=== PATIENT | female | born 1945 | race Caucasian/White ===

== ENCOUNTER 2019-03-25 03:01 | Inpatient (IN) | payer MEDICARE, OTHER ==
[2019-03-25] MEDS: morphine 4 MG/ML VIAL IM (03:29)
[2019-03-25] MEDS: ONDANSETRON (ODT) 4 MG TAB ODT (03:30)
[2019-03-25 05:25] LABS: ADD MAN DIFF? NO
[2019-03-25] MEDS: morphine 4 MG/ML VIAL IV ×2 (05:31→09:00)
[2019-03-25 05:32] LABS: WHITE BLOOD COUNT 12.7 10^3/ul (4.8-10.8)
[2019-03-25 05:32] LABS: BASOPHILS % 0.7 % (0.0-2.0); EOSINOPHILS % 2.1 % (0.0-7.0); HEMATOCRIT 36.1 % (37.0-47.0); HEMOGLOBIN 11.3 g/dl (12.0-16.0); LYMPHOCYTES # 0.8 10^3/ul (0.8-2.9); LYMPHOCYTES % 6.3 % (15.0-51.0); MEAN CORPUSCULAR HEMOGLOBIN 28.7 pg (29.0-33.0); MEAN CORPUSCULAR HGB CONC 31.3 g/dl (32.0-37.0); MEAN CORPUSCULAR VOLUME 91.6 fl (82.0-101.0); MEAN PLATELET VOLUME 10.3 fl (7.4-10.4); MONOCYTES % 4.7 % (0.0-11.0); NEUTROPHIL # 10.8 10^3/ul (1.6-7.5); NEUTROPHILS % 85.6 % (39.0-77.0); PLATELET COUNT 303 10^3/UL (140-415); RED BLOOD COUNT 3.94 10^6/ul (4.20-5.40)
[2019-03-25] MEDS: ONDANSETRON 4 MG INJ IV (05:32)
[2019-03-25 05:33] LABS: BASOPHIL # 0.1 10^3/ul (0.0-0.1); EOSINOPHILS # 0.3 10^3/ul (0.0-0.5); MONOCYTE # 0.6 10^3/ul (0.3-0.9)
[2019-03-25 05:51] LABS: INR 0.87; PROTIME 11.9 Sec (11.9-14.9); PT RATIO 0.9
[2019-03-25 05:52] LABS: PARTIAL THROMBOPLASTIN TIME 29.1 Sec (23.0-35.0)
[2019-03-25 05:58] LABS: ALANINE AMINOTRANSFERASE 11 IU/L (13-69); ALBUMIN 3.7 g/dl (3.3-4.9); ALBUMIN/GLOBULIN RATIO 1.15; ALKALINE PHOSPHATASE 103 IU/L (42-121); ANION GAP 7 (5-13); ASPARTATE AMINO TRANSFERASE 17 IU/L (15-46); BILIRUBIN,INDIRECT 0.1 mg/dl (0-1.1); BILIRUBIN,TOTAL 0.1 mg/dl (0.2-1.3); BLOOD UREA NITROGEN 20 mg/dl (7-20); CALCIUM 9.2 mg/dl (8.4-10.2); CARBON DIOXIDE 29 mmol/L (21-31); CHLORIDE 104 mmol/L (97-110); CREATININE 0.74 mg/dl (0.44-1.00); GLUCOSE 127 mg/dl (70-220); POTASSIUM 4.3 mmol/L (3.5-5.1); SODIUM 140 mmol/L (135-144); TOTAL PROTEIN 6.9 g/dl (6.1-8.1)
[2019-03-25] MEDS ORDERED: ACETAMINOPHEN 325 MG TAB PO (09:00)
[2019-03-25] MEDS ORDERED: HYDROCODONE/APAP (5/325) TAB PO (09:00)
[2019-03-25] MEDS: DEXTROSE 5%-0.45% NACL 1,000 ML IV ×2 (09:00→22:44)
[2019-03-25] MEDS: HYDROmorphONE 1 MG/ML SYG IV ×3 (11:33→19:24)
[2019-03-25] MEDS: HYDROCODONE/APAP (5/325) TAB PO ×2 (16:32→22:39)
[2019-03-25] MEDS: ZOLPIDEM 5 MG TAB PO (21:47)
[2019-03-26] MEDS: ALBUTEROL 0.083% (NEB) 2.5 MG/3 ML AMP HHN ×2 (02:38→16:35)
[2019-03-26] MEDS: ONDANSETRON 4 MG INJ IV ×3 (04:56→21:34)
[2019-03-26] MEDS: HYDROCODONE/APAP (5/325) TAB PO ×4 (04:57→21:34)
[2019-03-26] MEDS ORDERED: SPECIAL NON-STANDARD MEDICATION INH ×2 (12:00→21:00)
[2019-03-26] MEDS: PANTOPRAZOLE (EC) 40 MG TAB PO (12:11)
[2019-03-26] MEDS: METOPROLOL 25 MG TAB PO (12:17)
[2019-03-26] MEDS: HYDROmorphONE 1 MG/ML SYG IV (12:21)
[2019-03-26] MEDS: DEXTROSE 5%-0.45% NACL 1,000 ML IV (12:21)
[2019-03-26] MEDS: SPECIAL NON-STANDARD MEDICATION INH (23:50)
[2019-03-26] MEDS: ZOLPIDEM 5 MG TAB PO (23:50)
[2019-03-27 05:49] LABS: ADD MAN DIFF? NO
[2019-03-27] MEDS: DEXTROSE 5%-0.45% NACL 1,000 ML IV ×3 (05:56→21:42)
[2019-03-27 05:57] LABS: BASOPHILS % 0.4 % (0.0-2.0); EOSINOPHILS # 0.1 10^3/ul (0.0-0.5); EOSINOPHILS % 1.3 % (0.0-7.0); HEMATOCRIT 36.2 % (37.0-47.0); HEMOGLOBIN 11.2 g/dl (12.0-16.0); LYMPHOCYTES # 0.8 10^3/ul (0.8-2.9); LYMPHOCYTES % 8.7 % (15.0-51.0); MEAN CORPUSCULAR HEMOGLOBIN 28.8 pg (29.0-33.0); MEAN CORPUSCULAR HGB CONC 30.9 g/dl (32.0-37.0); MEAN CORPUSCULAR VOLUME 93.1 fl (82.0-101.0); MEAN PLATELET VOLUME 10.8 fl (7.4-10.4); MONOCYTE # 0.8 10^3/ul (0.3-0.9); MONOCYTES % 8.9 % (0.0-11.0); NEUTROPHIL # 7.5 10^3/ul (1.6-7.5); NEUTROPHILS % 80.4 % (39.0-77.0); PLATELET COUNT 264 10^3/UL (140-415); RED BLOOD COUNT 3.89 10^6/ul (4.20-5.40); RED CELL DISTRIBUTION WIDTH 16.2 % (11.5-14.5)
[2019-03-27 05:57] LABS: WHITE BLOOD COUNT 9.3 10^3/ul (4.8-10.8)
[2019-03-27] MEDS: HYDROCODONE/APAP (5/325) TAB PO ×4 (05:57→21:28)
[2019-03-27 06:26] LABS: ALANINE AMINOTRANSFERASE 10 IU/L (13-69); ALBUMIN 3.3 g/dl (3.3-4.9); ALKALINE PHOSPHATASE 98 IU/L (42-121); ANION GAP 5 (5-13); ASPARTATE AMINO TRANSFERASE 17 IU/L (15-46); BILIRUBIN,INDIRECT 0.2 mg/dl (0-1.1); BILIRUBIN,TOTAL 0.2 mg/dl (0.2-1.3); BLOOD UREA NITROGEN 9 mg/dl (7-20); CALCIUM 9.6 mg/dl (8.4-10.2); CARBON DIOXIDE 31 mmol/L (21-31); CHLORIDE 105 mmol/L (97-110); CREATININE 0.56 mg/dl (0.44-1.00); GLUCOSE 121 mg/dl (70-220); POTASSIUM 3.9 mmol/L (3.5-5.1); SODIUM 141 mmol/L (135-144); TOTAL PROTEIN 6.6 g/dl (6.1-8.1)
[2019-03-27] MEDS: SPECIAL NON-STANDARD MEDICATION INH ×2 (10:01→21:00)
[2019-03-27] MEDS: NICOTINE (14 MG/24 HR) PATCH TRANSDERM (10:02)
[2019-03-27] MEDS: METOPROLOL 25 MG TAB PO (10:02)
[2019-03-27] MEDS: OMEPRAZOLE 20 MG TABLET PO (10:12)
[2019-03-27 10:52] LABS: AADO2 Arterial 37.8 mmHg (7.0-24.0); Allen Test ACCEPTAB; Arterial Base Excess 3.7 mmol/L (-3.0-3); Arterial Blood Gas Oxygen Sat 91.3 mmHG (95.0-100.0); Arterial COHb 0.5 % (0.0-3.0); Arterial Fraction of Oxyhgb 90.8 % (93.0-99.0); Arterial HCO3 28.7 mmol/L (22.0-26.0); Arterial MetHb 0.1 % (0.0-1.5); Arterial pCO2 45.1 mmhg (35-45); MODE ROOM AIR; Site Right Radial
[2019-03-27] MEDS: PANTOPRAZOLE (EC) 40 MG TAB PO (18:49)
[2019-03-27] MEDS: ALBUTEROL 0.083% (NEB) 2.5 MG/3 ML AMP HHN (20:43)
[2019-03-27] MEDS: GUAIFENESIN LA 600 MG TABSR PO (21:50)
[2019-03-27] MEDS: ZOLPIDEM 5 MG TAB PO (22:38)
[2019-03-27] MEDS: ONDANSETRON 4 MG INJ IV (23:26)
[2019-03-28] MEDS: PANTOPRAZOLE (EC) 40 MG TAB PO ×2 (05:13→17:29)
[2019-03-28] MEDS: HYDROCODONE/APAP (5/325) TAB PO ×3 (05:14→14:50)
[2019-03-28] MEDS: ONDANSETRON 4 MG INJ IV ×3 (05:14→16:12)
[2019-03-28 05:19] LABS: ADD MAN DIFF? NO
[2019-03-28 05:34] LABS: WHITE BLOOD COUNT 6.9 10^3/ul (4.8-10.8)
[2019-03-28 05:34] LABS: BASOPHIL # 0.1 10^3/ul (0.0-0.1); BASOPHILS % 0.9 % (0.0-2.0); EOSINOPHILS # 0.2 10^3/ul (0.0-0.5); EOSINOPHILS % 3.3 % (0.0-7.0); HEMATOCRIT 37.5 % (37.0-47.0); HEMOGLOBIN 11.7 g/dl (12.0-16.0); LYMPHOCYTES # 0.8 10^3/ul (0.8-2.9); MEAN CORPUSCULAR HEMOGLOBIN 29.1 pg (29.0-33.0); MEAN CORPUSCULAR HGB CONC 31.2 g/dl (32.0-37.0); MEAN CORPUSCULAR VOLUME 93.3 fl (82.0-101.0); MEAN PLATELET VOLUME 10.7 fl (7.4-10.4); MONOCYTE # 0.6 10^3/ul (0.3-0.9); MONOCYTES % 8.8 % (0.0-11.0); NEUTROPHIL # 5.2 10^3/ul (1.6-7.5); NEUTROPHILS % 74.7 % (39.0-77.0); PLATELET COUNT 244 10^3/UL (140-415); RED BLOOD COUNT 4.02 10^6/ul (4.20-5.40); RED CELL DISTRIBUTION WIDTH 16.3 % (11.5-14.5)
[2019-03-28] MEDS: ALBUTEROL 0.083% (NEB) 2.5 MG/3 ML AMP HHN (05:36)
[2019-03-28 06:21] LABS: ANION GAP 5 (5-13); BLOOD UREA NITROGEN 8 mg/dl (7-20); CALCIUM 9.2 mg/dl (8.4-10.2); CARBON DIOXIDE 31 mmol/L (21-31); CHLORIDE 104 mmol/L (97-110); CREATININE 0.54 mg/dl (0.44-1.00); GLUCOSE 117 mg/dl (70-220); POTASSIUM 3.8 mmol/L (3.5-5.1); SODIUM 140 mmol/L (135-144)
[2019-03-28] MEDS: GUAIFENESIN LA 600 MG TABSR PO ×2 (08:47→21:00)
[2019-03-28] MEDS: METOPROLOL 25 MG TAB PO (09:29)
[2019-03-28] MEDS: NICOTINE (14 MG/24 HR) PATCH TRANSDERM (09:36)
[2019-03-28] MEDS: CEFTRIAXONE 1 GM/50 ML (PMX) 50 ML IVPB (09:44)
[2019-03-28] MEDS: SPECIAL NON-STANDARD MEDICATION INH ×3 (09:46→21:13)
[2019-03-28] MEDS: AZITHROMYCIN 500 MG TAB PO (10:25)
[2019-03-28] MEDS: ASPIRIN (EC) 81 MG TAB PO (15:17)
[2019-03-28] MEDS: traMADol 50 MG TAB PO ×2 (17:29→23:01)
[2019-03-28] MEDS: hydrALAzine 20 MG INJ IV (17:51)
[2019-03-28] MEDS ORDERED: AMLODIPINE 5 MG TAB PO ×2 (18:00→21:00)
[2019-03-28] MEDS: AMLODIPINE 5 MG TAB PO (18:35)
[2019-03-28] MEDS: CALCIUM CARBONATE 500 MG CHEW TAB PO (21:06)
[2019-03-28] MEDS: ZOLPIDEM 5 MG TAB PO (23:35)
[2019-03-29] MEDS: traMADol 50 MG TAB PO ×3 (05:58→22:33)
[2019-03-29] MEDS: PANTOPRAZOLE (EC) 40 MG TAB PO ×2 (05:58→17:35)
[2019-03-29] MEDS: CALCIUM CARBONATE 500 MG CHEW TAB PO (06:03)
[2019-03-29] MEDS: GUAIFENESIN LA 600 MG TABSR PO ×2 (09:00→21:00)
[2019-03-29] MEDS: NICOTINE (14 MG/24 HR) PATCH TRANSDERM (09:25)
[2019-03-29] MEDS: AZITHROMYCIN 250 MG TAB PO (09:25)
[2019-03-29] MEDS: METOPROLOL 25 MG TAB PO ×2 (09:28→21:10)
[2019-03-29] MEDS: AMLODIPINE 5 MG TAB PO ×2 (09:28→21:11)
[2019-03-29] MEDS: ALBUTEROL 0.083% (NEB) 2.5 MG/3 ML AMP HHN ×2 (09:36→22:14)
[2019-03-29] MEDS: SPECIAL NON-STANDARD MEDICATION INH ×2 (09:59→21:09)
[2019-03-29] MEDS: CEFTRIAXONE 1 GM/50 ML (PMX) 50 ML IVPB (09:59)
[2019-03-29] MEDS ORDERED: BISACODYL (EC) 5 MG TAB PO (18:30)
[2019-03-29] MEDS: MAGNESIUM HYDROXIDE 30ML CUP PO (18:59)
[2019-03-29 19:09] LABS: ADD MAN DIFF? NO
[2019-03-29 19:19] LABS: WHITE BLOOD COUNT 7.6 10^3/ul (4.8-10.8)
[2019-03-29 19:19] LABS: BASOPHILS % 0.5 % (0.0-2.0); EOSINOPHILS # 0.2 10^3/ul (0.0-0.5); EOSINOPHILS % 2.9 % (0.0-7.0); HEMATOCRIT 38.8 % (37.0-47.0); HEMOGLOBIN 12.4 g/dl (12.0-16.0); LYMPHOCYTES # 0.8 10^3/ul (0.8-2.9); LYMPHOCYTES % 10.2 % (15.0-51.0); MEAN CORPUSCULAR HEMOGLOBIN 28.8 pg (29.0-33.0); MEAN PLATELET VOLUME 10.2 fl (7.4-10.4); MONOCYTE # 0.7 10^3/ul (0.3-0.9); MONOCYTES % 8.5 % (0.0-11.0); NEUTROPHIL # 5.9 10^3/ul (1.6-7.5); NEUTROPHILS % 77.6 % (39.0-77.0); PLATELET COUNT 293 10^3/UL (140-415); RED BLOOD COUNT 4.31 10^6/ul (4.20-5.40); RED CELL DISTRIBUTION WIDTH 16.5 % (11.5-14.5)
[2019-03-29 19:35] LABS: ANION GAP 6 (5-13); BLOOD UREA NITROGEN 16 mg/dl (7-20); CALCIUM 9.6 mg/dl (8.4-10.2); CARBON DIOXIDE 30 mmol/L (21-31); CHLORIDE 103 mmol/L (97-110); CREATININE 0.67 mg/dl (0.44-1.00); GLUCOSE 109 mg/dl (70-220); POTASSIUM 3.7 mmol/L (3.5-5.1); SODIUM 139 mmol/L (135-144)
[2019-03-29] MEDS: DOCUSATE SODIUM 100 MG CAP PO (21:00)
[2019-03-29] MEDS: ZOLPIDEM 5 MG TAB PO (23:40)
[2019-03-30 05:43] LABS: ADD MAN DIFF? NO
[2019-03-30 05:55] LABS: BASOPHIL # 0.1 10^3/ul (0.0-0.1); EOSINOPHILS # 0.3 10^3/ul (0.0-0.5); EOSINOPHILS % 4.5 % (0.0-7.0); HEMATOCRIT 35.8 % (37.0-47.0); HEMOGLOBIN 11.6 g/dl (12.0-16.0); MEAN CORPUSCULAR HEMOGLOBIN 29.2 pg (29.0-33.0); MEAN CORPUSCULAR HGB CONC 32.4 g/dl (32.0-37.0); MEAN CORPUSCULAR VOLUME 90.2 fl (82.0-101.0); MEAN PLATELET VOLUME 10.8 fl (7.4-10.4); MONOCYTE # 0.6 10^3/ul (0.3-0.9); MONOCYTES % 8.6 % (0.0-11.0); NEUTROPHIL # 4.9 10^3/ul (1.6-7.5); NEUTROPHILS % 70.6 % (39.0-77.0); PLATELET COUNT 304 10^3/UL (140-415); RED BLOOD COUNT 3.97 10^6/ul (4.20-5.40); RED CELL DISTRIBUTION WIDTH 16.5 % (11.5-14.5)
[2019-03-30 05:55] LABS: WHITE BLOOD COUNT 6.9 10^3/ul (4.8-10.8)
[2019-03-30] MEDS: PANTOPRAZOLE (EC) 40 MG TAB PO ×2 (06:20→17:53)
[2019-03-30] MEDS: traMADol 50 MG TAB PO ×3 (06:24→19:19)
[2019-03-30 06:43] LABS: ANION GAP 6 (5-13); BLOOD UREA NITROGEN 15 mg/dl (7-20); CALCIUM 9.5 mg/dl (8.4-10.2); CARBON DIOXIDE 29 mmol/L (21-31); CHLORIDE 104 mmol/L (97-110); CREATININE 0.64 mg/dl (0.44-1.00); GLUCOSE 92 mg/dl (70-220); POTASSIUM 3.7 mmol/L (3.5-5.1); SODIUM 139 mmol/L (135-144)
[2019-03-30] MEDS: GUAIFENESIN LA 600 MG TABSR PO (09:00)
[2019-03-30] MEDS: SPECIAL NON-STANDARD MEDICATION INH (09:00)
[2019-03-30] MEDS: DOCUSATE SODIUM 100 MG CAP PO (09:28)
[2019-03-30] MEDS: AZITHROMYCIN 250 MG TAB PO (09:28)
[2019-03-30] MEDS: ASPIRIN 81 MG TAB PO (09:29)
[2019-03-30] MEDS: METOPROLOL 25 MG TAB PO (09:29)
[2019-03-30] MEDS: AMLODIPINE 5 MG TAB PO (09:29)
[2019-03-30] MEDS: CEFTRIAXONE 1 GM/50 ML (PMX) 50 ML IVPB (09:30)
[2019-03-30] MEDS: NICOTINE (14 MG/24 HR) PATCH TRANSDERM (09:30)
[2019-03-30] MEDS: ALBUTEROL 0.083% (NEB) 2.5 MG/3 ML AMP HHN (09:48)
== END 2019-03-30 20:00 | DRG 562 ==
LOC: E/R 03:01 → MS1 04:43
PROC: 4A033R1 Measurement of Arterial Saturation, Peripheral, Percutaneous Approach (ICD-10-PCS; principal; 2019-03-27)
DX: S42.202A Unspecified fracture of upper end of left humerus, initial encounter for closed fracture (principal); J96.21 Acute and chronic respiratory failure with hypoxia; J44.1 Chronic obstructive pulmonary disease with (acute) exacerbation; D72.829 Elevated white blood cell count, unspecified; I10 Essential (primary) hypertension; K21.9 Gastro-esophageal reflux disease without esophagitis; I25.2 Old myocardial infarction; I25.10 Atherosclerotic heart disease of native coronary artery without angina pectoris; Z87.01 Personal history of pneumonia (recurrent); Z99.81 Dependence on supplemental oxygen; Z88.0 Allergy status to penicillin; Z87.891 Personal history of nicotine dependence; Z95.5 Presence of coronary angioplasty implant and graft; Z88.2 Allergy status to sulfonamides
CPT/HCPCS: 36600; 70450; 71045; 71250; 72125; 73030; 80048; 80053; 82803; 85025; 85610; 85730; 87116; 93005; 93306; 94640; 94664; 97110; 97116; 97163; 97530; 99217